=== PATIENT | female | born 2000 ===

== ENCOUNTER 2018-11-21 21:24 | Emergency (ER) | payer MEDICAID ==
[2018-11-21 22:49] VITALS: BMI 21.5
[2018-11-21 22:51] VITALS: RESP 18; O2SAT 100
--- NOTE | 2018-11-22 00:53 | ED PDOC ---
HPI: CCC, URI, Sore Throat Time Seen by Provider: 11/21/18 23:27 Chief Complaint (Nursing): Cough, Cold, Congestion History Per: Patient Additional Complaint(s): Pt. states for the past 2 weeks she's had a progressively worsening cough. Reports cough is productive of yellow/green sputum. Initially had fever which resolved. Denies chest pain, SOB, hemoptysis, sick contacts, recent travel. Past Medical History Reviewed: Historical Data, Nursing Documentation, Vital Signs Vital Signs: Last Vital Signs Temp 98.1 F 11/21/18 22:49 Pulse 80 11/21/18 22:49 Resp 18 11/21/18 22:49 BP 126/80 11/21/18 22:49 Pulse Ox 100 11/21/18 22:49 - Family History Family History: States: No Known Family Hx - Home Medications Home Medications: Ambulatory Orders Medication Instructions Recorded Dicyclomine [Bentyl] 10 mg PO QID PRN #10 cap 10/30/15 RX: Ibuprofen 600 mg PO Q8 PRN #15 tablet 05/16/16 Ondansetron [Zofran] 4 mg PO Q8H #10 tab 12/25/16 Albuterol HFA [Ventolin HFA 90 2 puff IH [id number] PRN #120 puff 11/22/18 mcg/actuation (8 g)] RX: Promethazine DM [Phenergan DM 5 - 10 ml PO Q8 PRN #120 ml 11/22/18 Syrup] - Allergies Allergies/Adverse Reactions: Allergies Allergy/AdvReac Type Severity Reaction Status Date / Time pollen extracts Allergy SHORTNESS Verified 11/21/18 22:49 OF BREATH Review of Systems ROS Statement: Except As Marked, All Systems Reviewed And Found Negative Respiratory: Positive for: Cough, Sputum Physical Exam - Physical Exam Appears: Positive for: Well, Non-toxic, No Acute Distress Skin: Positive for: Normal Color, Warm. Negative for: Rash Eye Exam: Positive for: Normal appearance ENT: Positive for: Normal ENT Inspection Cardiovascular/Chest: Positive for: Regular Rate, Rhythm Respiratory: Positive for: Normal Breath Sounds. Negative for: Respiratory Distress Neurologic/Psych: Positive for: Alert, Oriented (x3) - Laboratory Results Urine POC: Negative - ECG O2 Sat by Pulse Oximetry: 100 - Radiology X-Ray: Interpreted by Me (CXR) X-Ray Interpretation: No Acute Disease Disposition - Clinical Impression Clinical Impression: Acute bronchitis - Patient ED Disposition Is Patient to be Admitted: No - Disposition Referrals: [facility] [Outside] Disposition: Routine/Home Disposition Time: 00:52 Condition: STABLE Additional Instructions: FOLLOW UP WITH PMD FOR FURTHER EVALUATION RETURN TO ED IMMEDIATELY IF SYMPTOMS WORSEN YESI RUTH, thank you for letting us take care of you today. Your provider was Parker Huston MD and you were treated for VOMITING/CONGESTION. The emergency medical care you received today was directed at your acute symptoms. If you were prescribed any medication, please fill it and take as directed. It may take several days for your symptoms to resolve. Return to the Emergency Department if your symptoms worsen, do not improve, or if you have any other problems. Please contact your doctor or call one of the physicians/clinics you have been referred to that are listed on the Patient Visit Information form that is included in your discharge packet. Bring any paperwork you were given at discharge with you along with any medications you are taking to your follow up visit. Our treatment cannot replace ongoing medical care by a primary care provider outside of the emergency department. Thank you for allowing the [facility] team to be part of your care today. If you had an X-Ray or CT scan: A Radiologist will review the ED reading if any change in treatment is needed we will contact you. If you had a blood, urine, or wound culture: It will take several days for the results, if any change in treatment is needed we will contact you. If you had an STI test: It will take 48 hours for the results. Please call after 1 week if you have not heard back. Prescriptions: Albuterol HFA [Ventolin HFA 90 mcg/actuation (8 g)] 2 puff IH [id number] PRN #120 puff PRN Reason: Cough or wheezing RX: Promethazine DM [Phenergan DM Syrup] 5 - 10 ml PO Q8 PRN #120 ml PRN Reason: Cough Instructions: Acute Bronchitis, Adult (DC) Forms: [facility] ([place]) Print Language: ERITREAN
[2018-11-22 01:26] VITALS: BP 116/78; PULSE 78; TEMP 98.4
--- NOTE | 2018-11-22 10:47 | RAD ---
Date of service: 11/22/2018 HISTORY: cough COMPARISON: Chest radiograph dated 07/07/2012 TECHNIQUE: Chest PA and lateral FINDINGS: LUNGS: No active pulmonary disease. PLEURA: No significant pleural effusion identified. No pneumothorax apparent. CARDIOVASCULAR: No aortic atherosclerotic calcification present. Normal cardiac size. No pulmonary vascular congestion. OSSEOUS STRUCTURES: No significant abnormalities. VISUALIZED UPPER ABDOMEN: Normal. OTHER FINDINGS: None. IMPRESSION: No active disease.
== END 2018-11-22 01:15 | disposition home or self-care (01) ==
LOC: H.ER 21:24
DX: J20.9 Acute bronchitis, unspecified (principal)